=== PATIENT | female | born 1965 | race Caucasian/White ===

== ENCOUNTER → 2017-05-22 | Outpatient (CLI) | payer BC ==
[~2017-05-22] MED LIST: HYDROCHLOROTHIA25 MG PO; IRON325 M1 PO; LOESTRIN FE 1-1 EACH PO; PLEXUS BIO CLEANSE PO; PLEXUS PROBIOTIC PO; [UNRECOGNIZED DRUG - OTHER] PO
[2017-05-22 17:13] LABS: ALBUMIN 3.5 gm/dL (3.5-5.0); ALK PHOS 83 IU/L (33-138); ALT 44 IU/L (12-78); ANION GAP 12.2 (10.0-19.0); AST 22 IU/L (10-40); BLOOD UREA NITROGEN 12 mg/dL (6-24); CALCIUM 8.9 mg/dL (8.5-10.5); CHLORIDE 102 mMol/L (96-110); CO2 30 mMol/L (22-32); CREATININE 0.9 mg/dL (0.5-1.1); ESTIMATED GFR (MDRD EQUATION) > 60; POTASSIUM 3.2 mMol/L (3.7-5.1); SODIUM 141 mMol/L (135-145); TOTAL BILIRUBIN 0.5 mg/dL (0.0-1.5); TOTAL PROTEIN 7.7 g/dL (6.0-8.4)
== END | disposition disaster alternative care site (69) ==
LOC: LNHI 16:48
PROVIDERS: Internal Medicine Interventional Cardiology
DX: I10 Essential (primary) hypertension (principal); I50.32 Chronic diastolic (congestive) heart failure; R60.0 Localized edema

== ENCOUNTER → 2017-05-30 | Outpatient (CLI) | payer SELFPAY ==
--- NOTE | ~2017-05-30 | OR ---
PATIENT'S NAME: SAVITA GRIDER [facility] AGE: 51 Y [address] ROOM: [place] [id number] LOCATION: [facility] ADMIT DATE: 05/30/2017 OR/Procedure Report DISCHARGE DATE: FAMILY PHYSICIAN: MUSA NIEVES MD ATTENDING PHYSICIAN: RADHA BERGERON SURGEON: Asaf Zheng MD STITCHER SET UP OPERATOR AUTOMATIC: DATE OF PROCEDURE: 05/30/2017 PROCEDURE PERFORMED: CT cardiac calcium score analysis. INDICATION FOR STUDY: Dyspnea on exertion and chest pain. The patient was referred for CT coronary angiogram and calcium score analysis. The total calcium score is 0. CT coronary angiogram could not be performed due to inability to get IV access for a suitable contrast bolus. IMPRESSION: The total calcium score is 0. CT angiogram could not be performed. MD JUSTINA KELLY/venancio /[id number] d: 06/01/17 2341 t: 06/07/17 1530, OPERATIVE SUMMARY
== END | disposition disaster alternative care site (69) ==
LOC: GPOC 05-28 13:00 → GRAD 10:05 → GPOC 10:15
DX: R06.02 Shortness of breath (principal); R07.9 Chest pain, unspecified; R06.09 Other forms of dyspnea
CPT/HCPCS: J2001; Q9967